=== PATIENT | male | born 1990 | race Hispanic/Latino ===

== ENCOUNTER → 2019-02-27 | Outpatient (CLI) | payer BC ==
[~2019-02-27] MED LIST: ZYRTEC10 M3 PO
--- NOTE | 2019-03-05 12:50 | Polysomnography ---
DATE OF STUDY: REFERRING PHYSICIAN: STUDY: Polysomnography report. HISTORY OF PRESENT ILLNESS: The patient reports snoring and witnessed apnea. He has difficulty maintaining sleep at night. Reports daytime somnolence. INTERPRETATION: The patient came to the laboratory for a split night study. During the diagnostic portion of the study, the patient slept for 131.5 minutes out of 133 minutes. The sleep efficiency was 99%. The sleep onset latency was 0 minutes. The latency to REM was 59 minutes. The patient spent 11 minutes in REM sleep, which was 8.4% of the night. The minimal saturation was 87%. The minimal heart rate was 47 beats per minute. There were no arrhythmias. There were 35 apneic events and 6 hypopneic events. The apnea-hypopnea index was 18.7 events per hour. During the therapeutic portion of the night, the patient slept for 233.5 minutes out of 235 minutes. The sleep efficiency was 98.5%. The sleep onset latency was zero. Latency to REM was 32.5 minutes. The patient spent 72 minutes in REM sleep, which was 31.3% of the night. The minimal heart rate was 52 beats per minute. The minimal saturation was 80%. There were some increased leg movements during sleep. The [place] sleep score was 14. The die tripper desensitized the patient to CPAP. The patient then initiated CPAP at 5 cm of water pressure and gradually increased to 13 cm of water pressure at 13 cm of water pressure. The nocturnal events were successfully controlled. IMPRESSION: 1. Moderate obstructive sleep apnea. 2. Successful treatment of sleep apnea with CPAP. RECOMMENDATIONS: 1. CPAP at 13 cm water pressure with heated humidifier. 2. Avoid alcohol or sedatives prior to sleep. 3. Achieve and maintain an ideal body weight. 4. Followup in 3 months to ensure efficacy and compliance of CPAP. MD JOCE Benz/CAROL /[id number]
== END ==
LOC: SLEEP 08:00
PROVIDERS: ATTEND Internal Medicine Critical Care Medicine
DX: G47.30 Sleep apnea, unspecified (principal)
CPT/HCPCS: 95811

== ENCOUNTER → 2019-03-09 | Day surgery (SDC) | payer BC ==
[~2019-03-09] MED LIST changes: +FENTANYL CITRATE/PF 100MCG/2 ML INJ ONE; +HYOSCYAMINE 0.125 MG TAB ONE; +MIDAZOLAM HCL 2 MG/2 ML VIAL ONE; +PROPOFOL IV EMULSION 10 MG/ML 50 ML VIAL ONE
[2019-03-09 18:15] VITALS: BP 140/90
[2019-03-09 18:28] LABS: WBC,FECAL (FECAL LACTOFERRIN) NEGATIVE (NEGATIVE)
--- NOTE | 2019-03-09 19:04 | Operative Report ---
DATE OF PROCEDURE: 03/09/2019 SURGEON: Gregory Vicente MD PROCEDURES: EGD with biopsies and colonoscopy with polypectomy and biopsies. INDICATIONS FOR EGD: Dyspepsia. INDICATIONS FOR COLONOSCOPY: Crampy lower abdominal pain, chronic diarrhea. MEDICATIONS: The patient was done under MAC, please see anesthesiologist's note. PROCEDURE IN DETAIL: With the patient in the left lateral decubitus position, a flexible fiberoptic Olympus gastroscope was introduced into the esophagus under direct visualization without any difficulty. There was some patchy erythema noted in distal esophagus. The scope was then advanced with ease into the stomach. Mucosa overlying the antrum and the body revealed some patchy erythema and low-grade to moderate edema and biopsies were obtained, and sent to stain for H. pylori. The pylorus was of normal contour and shape, it was intubated with ease and the scope was advanced all the way to the second portion of the duodenum. Biopsies were obtained from the second portion as well as the duodenal bulb to rule out sprue. The scope was then withdrawn back into the stomach and retroflexed and mucosa overlying the fundus and cardia appeared to be within normal limits. The scope was then straightened out, it was subsequently withdrawn. The patient tolerated procedure well. IMPRESSION: 1. Distal esophagitis, mild. 2. Gastritis, biopsied, biopsies sent to stain for H. pylori. 3. Rule out sprue. PLAN: Follow up histology. Initiate Protonix 40 mg one p.o. q.a.m. a.c. PROCEDURE IN DETAIL: The patient was then turned around and then after adequate lubrication of the anal canal, flexible fiberoptic Olympus colonoscope was inserted into the rectum with ease and advanced all the way to the cecum. The scope was then withdrawn slowly. Mucosa overlying the cecum appeared to be within normal limits. The ileocecal valve was intubated and the scope was advanced into the terminal ileum. Biopsies were obtained. The scope was then withdrawn back into the colon. It was then withdrawn slowly, mucosa overlying the ascending colon grossly appeared to be within normal limits. Mild inflammatory changes were noted in the transverse descending sigmoid and rectum, and those are more prominent in the left colon. Random biopsies were obtained. One polyp was snared from the transverse colon. The scope was then retroflexed into the distal rectum and small internal hemorrhoids were noted, none of which was actively bleeding. The scope was then straightened out, it was subsequently withdrawn after securing an adequate stool specimen that was sent for the appropriate stool studies. The patient tolerated the procedure well. IMPRESSION: 1. Transverse colon polyp snared. 2. Mild patchy colitis more prominent in the left colon. Random biopsies obtained. 3. Proctitis, mild. 4. Small internal hemorrhoids, none actively bleeding. PLAN: 1. Follow up histology. 2. Follow up stool studies. 3. Start Bentyl 20 mg one p.o. t.i.d. 4. Visbiome one p.o. b.i.d. Gregory Vicente MD [facility] [place] /[id number]
[2019-03-10 13:18] LABS: C DIFFICILE TOXIN A&B AMP PROB NEGATIVE (NEGATIVE)
== END | disposition home or self-care (01) ==
LOC: OR 01:55
PROVIDERS: ATTEND Internal Medicine Gastroenterology
DX: K29.50 Unspecified chronic gastritis without bleeding (principal); K20.9 Esophagitis, unspecified; K63.5 Polyp of colon; K51.50 Left sided colitis without complications; K64.8 Other hemorrhoids; R10.9 Unspecified abdominal pain; R11.0 Nausea; R14.0 Abdominal distension (gaseous); K62.89 Other specified diseases of anus and rectum; K62.5 Hemorrhage of anus and rectum; R19.5 Other fecal abnormalities; K59.09 Other constipation; R03.0 Elevated blood-pressure reading, without diagnosis of hypertension; E66.01 Morbid (severe) obesity due to excess calories; Z68.43 Body mass index [BMI] 50.0-59.9, adult; Z88.5 Allergy status to narcotic agent; Z91.011 Allergy to milk products; G47.33 Obstructive sleep apnea (adult) (pediatric); B96.81 Helicobacter pylori [H. pylori] as the cause of diseases classified elsewhere
CPT/HCPCS: 43239; 45385; 83630; 83993; 87045; 87177; 87328; 87493; J2250; J2704; J3010; 45378; 45380